=== PATIENT | female | born 1960 | race Caucasian/White ===

== ENCOUNTER 2017-06-21 16:47 | Day surgery (SDC) | payer BC ==
[2017-06-21] VITALS (12 sets, daily range): BP systolic 113–130; BP diastolic 63–85; PULSE 67–84; RESP 16–20; TEMP 98–98.5; O2SAT 97–100
[2017-06-21] MEDS ORDERED: HEPARIN-NS/PF FLUSH BAG 2,000 ML IV FLUSH ONE (17:14)
[2017-06-21] MEDS ORDERED: MIDAZOLAM HCL 2 MG/2 ML VIAL ONE (17:14)
[2017-06-21] MEDS ORDERED: LIDOCAINE HCL 1% PF 30 ML VIAL ONE (17:15)
[2017-06-21] MEDS ORDERED: diphenhydrAMINE HCL 50 MG/ML VIAL ONE (17:23)
--- NOTE | 2017-06-21 17:55 | CATHPROC ---
[employer] HIS Report Study Information Study Number Admission Scheduled Start Study Start [id number] Jun 21 2017 4:47PM 06/21/2017 Jun 21 2017 4:57PM [place] Service Cardiac Catheterization Admit Source Facility Department Other [facility] Executive Director Physician and Clinical Staff Initial Fabio Nuñez Conduit Reamer Operator Leah Us,GAGANDEEP Conduit Reamer Operator Seda Underwood,GAGANDEEP Recorder Elsi Horvath ,RT(R) Jazmin Enamorado,RT(R) TECH2 Procedures Performed Procedure Location (Site) Vessel Name Coronary Angiograms LCA Left Coronary Coronary Angiograms RCA Right Coronary L Heart Cath LV Gram-hand inj. LV LV Ventricle Equipment Time Principal Military Analyst Description Size Mfg Part Number Used/Scraped TRANSDUCER, TRUWAVE [id number] 17:00 LINN MADISON * Used W/STOCKCOCK *[id number] *[id number] *[id number] *[id number] PIGTAIL ANG. 145 INFINITI [id number] CATHETER *[id number] 17:45 DAIG/ST. FLAVIA MEDICAL ANGIOSEAL, FR6 VIP FR 6 Used *[id number] 17:00 [employer] INDUSTRIES PACK, CCL CUSTOM * Used *[id number] 17:00 [employer] PACER PEN, SKIN DUAL W/ RULER * Used *[id number] 17:00 [employer] MEDICAL SHEATH, FR6.5 PRELUDE 11CM FR 6.5 038ACT Used *[id number] 17:00 [employer] WIRE, 3MMJ .035 180CM 180CM Used *[id number] 17:00 NAMIC MANIFOLD, 4 PORT * Used *[id number] 17:00 NYCOMED OMNIPAQUE, 350 MG, 100ML 100ML [id number] Used [id number] 17:00 [employer]UILAR MEDICAL BLANKET,WARM AIR CCL * Used *[id number] Equipment Model, Serial, Lot Number and Expiration Data Description Model Number Serial Number Lot Number Expiration Date ANGIOSEAL, FR6 VIP [id number] 03-10-2018 History: Current Medications Medication Dosage/Unit Route Frequency Last Date/Time Taken Statins (any) History: Allergies Allergy Reaction Penicillin benzocaine History: Risk Factors Family History of Hypertension Dyslipidemia Previous NM Previous Heart Failure Premature CAD No Yes No No No Prior Valve Prior PCI Prior CABG Surgery No No No Cerebrovascular Peripheral Artery Chronic Lung On Dialysis Diabetes Disease Disease Disease No No No Yes No History: Symptoms/Diagnosis Selection Items Chest pain History: Stress Tests Stress or Imaging Studies Performed Yes Standard Exercise Stress Test No Stress Echo No Stress Test SPECT Stress Test SPECT Result Yes Positive Stress Test CMR No Cardiac CTA Coronary Calcium Score No No History: Other Disease Selection Items COPD Gerd History: Other Current Smoker No Labs Hgb (g/dl) Hct (%) WBC (l/cumm) Platelets (thousands) 11.60-17.00 35.00-51.00 4.00-11.00 150.00-450.00 13.0 38.2 4.2 222 BUN (mg/dl) Creatinine (mg/dl) BUN:Creatinine (1:x) 7.00-18.00 0.50-1.30 10.00-20.00 74 0.9 82.2 Na (meq/l) K (meq/l) 136.00-145.00 3.50-5.10 139 4.1 CPK-MB (ng/ML) 0.50-3.60 Not Drawn Medication Medication Total Dose (Bolus/Oral) Medication Total Dosage/Unit 1% XYLOCAINE 15 mL BENADRYL 25 mg VERSED 2 mg Medications (Bolus/Oral) Medication Time Given Dosage/Unit Administered By Reason BENADRYL 06/21/2017 5:24:21 PM 25 mg Hesher, Leah 25 mg BENADRYL given in lab by Leah Us, GAGANDEEP in Left Antecubital via Peripheral IV. Ordered by Fabio Quinn. VERSED 06/21/2017 5:25:30 PM 1 mg Hes, Leah 1 mg VERSED given in lab by Leah Us, RN in Left Antecubital via Peripheral IV. Ordered by Fabio Levine. VERSED 06/21/2017 5:27:34 PM 1 mg Seda Underwood 1 mg VERSED given in lab by Seda Underwood, GAGANDEEP in Left Antecubital via Peripheral IV. Ordered by Fabio Holley. 1% XYLOCAINE 06/21/2017 5:28:03 PM 15 mL Fabio Lundy 15 mL 1% XYLOCAINE given in lab by Fabio Lundy in Right Groin via Subcutaneous. Ordered by Fabio Lundy. Medication (Drip) Medication Time Given Dosage/Unit Concentration/Unit Diluent (ml) Solution IV Solutions 06/21/2017 5:10:30 PM 0 mL (IV) 500 NaCl .9 IV Solutions given in lab by Leah Us RN in Left Antecubital via Peripheral IV. Pump/Drip Flow = 30 ml/hr using NaCl .9. Initial Case Assessment Cardiovascular HR Rhythm NIBP Chest Pain 97 ST 141/76 0 Edema Present Skin color Skin None Normal Warm Dry Circulatory - Right Pulses Dorsalis Pedis Femoral 3 3 Scale (0,1,2,3,4,d) Circulatory - Left Pulses Dorsalis Pedis Femoral 3 3 Scale (0,1,2,3,4,d) Circulatory - Lower Extremities Color Lower Right Color Lower Left Normal Normal Neurological State Oriented to time-place- Alert Moves all extremities person Respiration - General Respiration Rate SpO2 (%) (B/min) 12 100 Final Case Assessment Cardiovascular HR Rhythm NIBP Chest Pain [address] ST 141/76 0 Edema Present Skin color Skin None Normal Warm Dry Circulatory - Right Pulses Dorsalis Pedis Femoral 3 3 Scale (0,1,2,3,4,d) Circulatory - Left Pulses Dorsalis Pedis Femoral 3 3 Scale (0,1,2,3,4,d) Circulatory - Lower Extremities Color Lower Right Color Lower Left Normal Normal Neurological State Oriented to time-place- Alert Moves all extremities person Respiration - General Respiration Rate SpO2 (%) (B/min) 12 100 Chronological Log Time Study Chronological Log 16:56:42 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 16:56:43 Patient Name, D.O.B, / Armband Verified By R.N. 17:10:14 Consent signed by the physician and the patient and verified by the Hospice Executive Director staff. 17:10:15 Pre-op and post- op instructions given; patient acknowledges understanding of instructions. 17:10:16 Verbal Stimulation=2 Physical Stimulation=2 Airway=2 Respiration=2 TOTAL=8. (0=absent, 1=li mited, 2=present) 17:10:19 Presedation assessment performed by Hospice Executive Director RN. 17:10:26 Skin Breakdown none per pt 17:10:26 Patient Warmer Placed on the Table. 17:10:28 Leydi Prominences Protected 17:10:29 A # 20 IV was noted in the Antecubital (left). Grade = 0 IV Solutions given in lab by Leah Us, AGGANDEEP in Left Antecubital via Peripheral IV. Pump/Dri p Flow = 30 ml/hr using 17:10:30 NaCl .9. 17:10:32 History and physical on the chart or being dictated. Assessment: Initial Case, HR=97 BPM, Rhythm=ST, LMEG=503/76 mmhg, Chest Pain=0, Edema=None, Col or=Normal, Skin = Warm, Dry Right Pulses: Petr Ped=3, Femoral=3 Left Pulses: Petr Ped=3, Femoral=3 17:10:33 Lower Right Extremities: Color=Normal Lower Left Extremities: Color=Normal Neurological: State=Alert, Ox3, CASTILLO Respiration: Resp=12 B/min, MeL5=590 % Vitals capture started with the following parameters, Patient=Adult, Interval=5 min, Initial Pr kwansh=292 mmHg, 17:12:53 Deflation Rate=5 mmHg, Cuff placed on Left Arm 17:12:59 Patient has been NPO for More than 6Hrs. 17:13:39 PE=311 bpm, MOZJ=644/76 mmhg, UyN9=952.0 %, Resp=8 B/min, Pain=0, Ryland=10, Cisneros=2 17:17:33 Bilateral groins prepped with 2% chlorhexidine, and draped after a 3 minute waiting time. 17:18:30 HR=95 bpm, LZEB=501/84 mmhg, HaU6=426.0 %, Resp=15 B/min, Pain=0, Ryland=10, Cisneros=2 17:19:00 MD arrived. 17:20:26 Pressure channel 1 zeroed. 17:23:33 HR=87 bpm, JVOQ=266/74 mmhg, DdN1=929.0 %, Resp=10 B/min, Pain=0, Ryland=10, Cisneros=2 17:24:21 25 mg BENADRYL given in lab by Leah Us, GAGANDEEP in Left Antecubital via Peripheral IV. Or dered by Fabio Lundy. 17:25:30 1 mg VERSED given in lab by Leah Us, RN in Left Antecubital via Peripheral IV. Order ed by Fabio Lundy. Time Out. Correct patient, correct procedure, correct physician, power injector not loaded with contrast with surgical 17:26:41 team present. Time Out Concurred by MD and individual staff in procedure. 17:26:51 Case Start 17:27:34 1 mg VERSED given in lab by Seda Underwood RN in Left Antecubital via Peripheral IV. Orde red by Fabio Lundy. 17:28:03 15 mL 1% XYLOCAINE given in lab by Fabio Lundy in Right Groin via Subcutaneous. Ordered b y Fabio Lundy. 17:28:32 HR=95 bpm, TAHX=647/73 mmhg, NcJ9=830.0 %, Resp=15 B/min, Pain=0, Ryland=10, Cisneros=2 17:29:39 Reference ECG taken 17:30:19 Access site was Right Femoral Artery. 17:30:26 A SHEATH, FR6.5 PRELUDE 11CM FR 6.5 was advanced into the Fem Art (right) using the Percuta neous technique. A PIGTAIL ANG. 145 INFINITI CATHETER FR 6 was advanced over a wire. OMNIPAQUE, 350 MG, 100ML 10 0ML was 17:31:18 used for injections. Recorded Pressure: LV, HR=85, Condition=Condition 1 17:32:24 (Left Ventricle) LV 113/1/6 17:32:40 The LV was manually injected with 10 cc's and visualized. OMNIPAQUE, 350 MG, 100ML 100ML us ed. Recorded Pressure: LV, Ao, HR=86, Condition=Condition 1 17:33:10 (Left Ventricle) LV 113/3/7, (Aorta) Ao 104/62/83 After removing the current catheter a JL 4.0 INFINITI CATHETER FR 6 was advanced over a WIRE, 3 MMJ .035 180CM 17:33:32 180CM. 17:33:33 HR=88 bpm, GGTC=353/58 mmhg, SpO2=99.0 %, Resp=18 B/min, Pain=0, Ryland=10, Cisneros=2 17:35:49 The LCA was injected and visualized at various angles. OMNIPAQUE, 350 MG, 100ML 100ML used . 17:37:12 Catheter was removed A 3DRC INFINITI CATHETER FR 6 was advanced over a wire. OMNIPAQUE, 350 MG, 100ML 100ML was used for 17:37:18 injections. 17:38:32 HR=84 bpm, UKXO=736/66 mmhg, SpO2=99.0 %, Resp=18 B/min, Pain=0, Ryland=10, Cisneros=2 17:39:50 Catheter was removed A AR MOD INFINITI CATHETER FR 6 was advanced over a wire. OMNIPAQUE, 350 MG, 100ML 100ML was us ed for 17:41:10 injections. 17:42:25 The RCA was injected and visualized at various angles. OMNIPAQUE, 350 MG, 100ML 100ML used . 17:42:39 Catheter was removed 17:43:29 HR=88 bpm, BBXI=796/68 mmhg, SpO2=98.0 %, Resp=14 B/min, Pain=0, Ryland=10, Cisneros=2 17:43:51 An injection in the Fem Art (right) was made through the SHEATH, FR6.5 PRELUDE 11CM FR 6.5 . 17:46:08 ANGIOSEAL, FR6 VIP FR 6 placement in the Fem Art (right) 17:46:47 Case End Assessment: Final Case, HR=97 BPM, Rhythm=ST, HJEQ=221/76 mmhg, Chest Pain=0, Edema=None, [place] r=Normal, Skin = Warm, Dry Right Pulses: Petr Ped=3, Femoral=3 Left Pulses: Petr Ped=3, Femoral=3 17:46:52 Lower Right Extremities: Color=Normal Lower Left Extremities: Color=Normal Neurological: State=Alert, Ox3, CASTILLO Respiration: Resp=12 B/min, PiB9=809 % 17:46:56 Catheter(s) removed without difficulty 17:46:59 Sterile dressing applied to site 17:47:00 No case complications noted. 17:47:01 Cine recording checked. 17:47:03 Bedside Report will be given. 17:47:07 A Left Heart Cath was performed. 17:48:33 HR=81 bpm, UFJN=962/59 mmhg, FoA3=320.0 %, Resp=15 B/min, Pain=0, Ryland=10, Cisneros=2 17:54:25 Patient moved to stretcher End Study - Contrast Media Used In Study Contrast Total Opened (mL) Total Used (mL) Total Wasted (mL) Omnipaque 40 40 0 End Study - Maximum Contrast Load Max Contrast Load (mL) 449.5 End Study - Radiation Exposure Fluoro Time (minutes) 4.0 End Study - Patient Disposition Complications Transferred To Interventional Outcome No Critical Care Bed No attempt made
[2017-06-21] MEDS ORDERED: SODIUM CHLOR 0.9% 1000 ML INJ 1,000 ML IV SCH (17:57)
[2017-06-21] MEDS ORDERED: ONDANSETRON HCL 4 MG/2 ML VIAL IV PUSH PRN (18:00)
[2017-06-21] MEDS ORDERED: ACETAMINOPHEN 325 MG TAB PO PRN (18:00)
[2017-06-21] MEDS ORDERED: TEMAZEPAM 15 MG CAP PO PRN (18:00)
[2017-06-22] VITALS (13 sets, daily range): BP systolic 107–128; BP diastolic 69–70; PULSE 58–68; RESP 16–18; TEMP 97.8; O2SAT 98–100
[2017-06-22] MEDS ORDERED: IOHEXOL 350 MG/ML 50 ML BTL (for Cath Lab) OTHER ONE (10:55)
--- NOTE | 2017-06-24 09:24 | MA ---
cc: Fabio Lundy MD, Carol DATE: 06/21/2017 PROCEDURES PERFORMED: Left heart catheterization, left ventriculography, coronary angiography, right femoral arteriography with Angio-Seal placement. BRIEF HISTORY: Mervat Blakely is a 56-year-old woman with severe hyperlipidemia who has been having chest discomfort. The chest discomfort is described as a pressure feeling in her chest. It is fairly low grade, grade typically 2/10, and it can last for hours. She has had a chest x-ray which revealed hyperinflation with exacerbation of chronic obstructive pulmonary disease and echocardiogram showing normal LV function. Lipid profile was extremely abnormal. I saw her in the office today. She was having a grade 1-2/10 pressure, but her EKG was normal and I stayed in the room during her treadmill test. She dropped her ST segment starting in stage II reaching 10 mm in stage III and actually had a little bit of ST change in recovery. She plans to fly to [facility] on Saturday for her daughter's wedding and is hell bent on making the wedding. I told her she needed to have a cardiac catheterization for possible unstable angina. We made arrangements to do it this evening to expedite her workup. DESCRIPTION OF PROCEDURE: The patient was brought to the cardiac catheterization lab in the fasting state. She had received 325 mg aspirin at my office. She received a total of 25 mg of IV Benadryl and 2 mg of IV Versed. Using 1% lidocaine for local anesthesia, a 6.5-Malaysian sheath was easily inserted into the right femoral artery. Left ventricular pressure was then recorded using a pigtail catheter, followed by left ventriculography and then a pullback. Coronary angiography was completed using a left 4 Jeronimo for the left coronary artery. 3DRC catheter selected so modified right Amplatz was used for the right coronary artery. Her coronary arteries were normal. Angiography was then obtained of the right groin. She had a very high bifurcating femoral artery, but the sheath was placed right above the bifurcation and below the inferior epigastric artery and it was suitable for closure. Angio-Seal closure was performed in sterile fashion without complications or bleeding. The patient is being put into the hospital as a bedded down outpatient and will be allowed to go home in the morning due to the fact that it is 6 p.m. FINDINGS: HEMODYNAMICS: Left ventricular pressure was 113/3 with an end diastolic pressure of 7. Aortic pressure was 104/62 with a mean of 83 with no gradient during pullback. LEFT VENTRICULOGRAPHY: Left ventriculography shows absence of coronary artery calcification. LV function is normal with an estimated ejection fraction of 60%. CORONARY ANGIOGRAPHY: The coronary circulation is left dominant. Right coronary artery is very small. Coronary arteries appear normal. There is no stenoses or calcifications. RIGHT FEMORAL ANGIOGRAPHY: There is a very high bifurcating femoral artery on the right side, just below the top of the femoral head. Sheath position, however, was optimal and allowed closure. CONCLUSIONS: Normal coronary arteries, left ventricular function and hemodynamics. The source of her chest pain is unclear, but it is almost certainly noncardiac in origin. RECOMMENDATIONS: Followup with Dr. Mary Madrid for a workup for noncardiac sources for chest pain. She may benefit from evaluation of her gastrointestinal tract. MD BOY Purdy/ , 05:56 PM , 06:24 PM
== END 2017-06-22 10:56 | disposition home or self-care (01) ==
LOC: UNDOADMOB 16:47 → HSDC 16:47 → HCIS 16:47 → UNDODISOB 06-22 10:56 → HSDC 06-22 10:56 → EDSTATUS 06-25 14:44
PROVIDERS: ATTEND Internal Medicine Cardiovascular Disease
DX: R07.89 Other chest pain (principal); E78.5 Hyperlipidemia, unspecified; J44.9 Chronic obstructive pulmonary disease, unspecified
CPT/HCPCS: 93458; 99152; 99153; C1760; C1769; C1893; G0269; J1200; J1644; J2250; J3010; J7030; Q9967